=== PATIENT | male | born 1955 | race African-American/Black ===

== ENCOUNTER 2017-03-22 22:36 | Emergency (ER) | payer MEDICAID, OTHER ==
[~2017-03-22] VITALS: Ht 175.3 cm; Wt 72.0 kg
[2017-03-22 22:53] VITALS: BP 135/90
== END 2017-03-23 01:51 | disposition left against medical advice (07) ==
LOC: ER 22:36
DX: Z00.8 Encounter for other general examination (principal); Z53.21 Procedure and treatment not carried out due to patient leaving prior to being seen by health care provider